=== PATIENT | female | born 2000 | race Caucasian/White ===

== ENCOUNTER 2020-11-16 08:56 | Emergency (ER) | payer OTHER ==
[2020-11-16 09:18] LABS: BASOPHILS % (AUTO) 0.1 %; EOSINOPHILS # (AUTO) 0.1 10^3/uL (0.0-0.7); EOSINOPHILS % (AUTO) 1.1 %; HCT - HEMATOCRIT 44.7 % (37.0-47.0); HGB - HEMOGLOBIN 15.9 g/dL (12.0-16.0); LYMPHOCYTES # (AUTO) 1.3 10^3/uL (1.5-3.5); LYMPHOCYTES % (AUTO) 17.6 %; MEAN CORPUSCULAR HGB CONC 35.6 g/dL (32.0-36.0); MEAN CORPUSCULAR VOLUME 95.5 fL (81.0-99.0); MEAN PLATELET VOLUME 8.9 fL (7.9-10.8); MONOCYTES # (AUTO) 0.6 10^3/uL (0.0-1.0); MONOCYTES % (AUTO) 8.1 %; NEUTROPHILS # (AUTO) 5.2 10^3/uL (1.5-6.6); PLT - PLATELET COUNT 219 10^3/uL (130-450); RED BLOOD COUNT 4.68 10^6/uL (4.20-5.40); RED CELL DISTRIBUTION WIDTH 11.6 % (12.0-15.0); WHITE BLOOD COUNT 7.1 x10^3/uL (4.8-10.8)
[2020-11-16] MEDS ORDERED: SODIUM CHLORIDE 0.9% 1,000 ML IV STA (09:21)
[2020-11-16 09:31] LABS: BILIRUBIN,URINE NEGATIVE (NEGATIVE); GLUCOSE, URINE (UA) NEGATIVE (NEGATIVE); KETONES,URINE (UA) NEGATIVE (NEGATIVE); LEUKOCYTE ESTERASE, URINE NEGATIVE (NEGATIVE); NITRITE,URINE NEGATIVE (NEGATIVE); OCCULT BLOOD,URINE NEGATIVE (NEGATIVE); PROTEIN,URINE NEGATIVE (NEGATIVE); UROBILINOGEN,URINE 0.2 (NORMAL) E.U./dL (NORMAL)
[2020-11-16 09:32] LABS: ALBUMIN 4.4 g/dL (3.2-5.5); ALBUMIN/GLOBULIN RATIO 1.4 (1.0-2.2); BILIRUBIN,TOTAL 0.8 mg/dL (0.2-1.0); CALCIUM 9.5 mg/dL (8.5-10.3); POTASSIUM 3.5 mmol/L (3.5-5.0); TOTAL PROTEIN 7.5 g/dL (6.7-8.2)
[2020-11-16 09:34] LABS: CLARITY,URINE CLEAR (CLEAR); HCG UR QUAL NEGATIVE
--- NOTE | 2020-11-16 09:50 | ED Physician Documentation ---
PD HPI NVD - Stated complaint Stated Complaint: ABD PX - Chief complaint Chief Complaint: Abd Pain - History obtained from History obtained from: Patient - History of Present Illness Timing - onset: How many days ago (5) Timing - duration: Days (5) Timing - details: Gradual onset, Still present Associated symptoms: Abdominal pain Contributing factors: No: Sick contact, Bad food, Travel, Recent antibiotics, Alcohol use, Anticoagulated, Diabetes Improved by: Laying still, BM Worsened by: Eating Similar symptoms before: Has not had sx before Recently seen: Not recently seen - Additonal information Additional information: 20-year-old female has developed acute diarrhea which has been excessive at 6 times per day and she has developed some abdominal cramping associated with this. She started this about 5 days ago and has had no improvement. She is drinking as much fluid as she can get down and she is nauseated but has not had issue with vomiting. She has not noted any blood in her stool. She has not been on antibiotic within the last 2 months and any eggs that she eats are processed through a restaurant. Review of Systems Constitutional: reports: Chills. denies: Fever Eyes: denies: Decreased vision Ears: denies: Ear pain Nose: denies: Congestion Throat: denies: Sore throat Cardiac: denies: Chest pain / pressure, Palpitations Respiratory: denies: Dyspnea, Cough GI: reports: Abdominal Pain, Nausea, Diarrhea. denies: Vomiting : denies: Dysuria, Frequency Skin: denies: Rash Musculoskeletal: denies: Neck pain, Back pain, Extremity pain PD PAST MEDICAL HISTORY - Present Medications Home Medications: Ambulatory Orders Medication Instructions Recorded Confirmed Levothyroxine [Synthroid] 25 mcg PO DAILY 11/16/20 11/16/20 Sulfamethox/Trimeth 800/160 1 each PO BID #10 tablet 11/16/20 [Bactrim Ds] - Allergies Allergies/Adverse Reactions: Allergies Allergy/AdvReac Type Severity Reaction Status Date / Time No Known Drug Allergies Allergy Verified 11/16/20 09:01 - Social History Does the pt smoke?: No Smoking Status: Never smoker - POLST Patient has POLST: No PD ED PE NORMAL - Vitals Vital signs reviewed: Yes - General General: Alert and oriented X 3, No acute distress, Well developed/nourished - HEENT HEENT: Atraumatic, PERRL, EOMI - Neck Neck: Supple, no meningeal sign, No bony TTP - Cardiac Cardiac: RRR, No murmur - Respiratory Respiratory: No respiratory distress, Clear bilaterally - Abdomen Abdomen: Normal bowel sounds, Soft, Non distended, No organomegaly, Other (mild general tenderness without garding ) - Back Back: No CVA TTP, No spinal TTP - Derm Derm: Normal color, Warm and dry, No rash - Extremities Extremities: No deformity, No edema - Neuro Neuro: Alert and oriented X 3, 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, No motor deficit, No sensory deficit, Normal speech Eye Opening: Spontaneous Motor: Obeys Commands Verbal: Oriented GCS Score: 15 - Psych Psych: Normal mood, Normal affect Results - Vitals Vitals: Vital Signs - 24 hr 11/16/20 11/16/20 11/16/20 09:02 11:04 13:08 Temperature 36.7 C 36.1 C L Heart Rate 87 66 82 Respiratory 18 19 18 Rate Blood Pressure 128/79 104/65 107/76 O2 Saturation 98 100 100 Oxygen O2 Source Room air - Labs Labs: Laboratory Tests 11/16/20 11/16/20 11/16/20 09:10 09:12 09:12 WBC 7.1 RBC 4.68 Hgb 15.9 Hct 44.7 MCV 95.5 MCH 34.0 H MCHC 35.6 RDW 11.6 L Plt Count 219 MPV 8.9 Neut # (Auto) 5.2 Lymph # (Auto) 1.3 L [place] # (Auto) 0.6 Eos # (Auto) 0.1 Baso # (Auto) 0.0 Absolute Nucleated RBC 0.00 Nucleated RBC % 0.0 Sodium 139 Potassium 3.5 Chloride 104 Carbon Dioxide 25 Anion Gap 10.0 BUN 9 Creatinine 1.0 Estimated GFR (MDRD) 71 L Glucose 101 H Calcium 9.5 Total Bilirubin 0.8 AST 18 ALT 16 Alkaline Phosphatase 65 Total Protein 7.5 Albumin 4.4 Globulin 3.1 Albumin/Globulin Ratio 1.4 Lipase 23 Urine Color LT. YELLOW Urine Clarity CLEAR Urine pH 7.0 Ur Specific [place] <=1.005 Urine Protein NEGATIVE Urine Glucose (UA) NEGATIVE Urine Ketones NEGATIVE Urine Occult Blood NEGATIVE Urine Nitrite NEGATIVE Urine Bilirubin NEGATIVE Urine Urobilinogen 0.2 (NORMAL) Ur Leukocyte Esterase NEGATIVE Ur Microscopic Review NOT INDICATED Urine Culture Comments NOT INDICATED Urine HCG, Qual NEGATIVE - Rads (name of study) ab/pel w Radiology: Prelim report reviewed (Impression: 1. Visualized portions of the appendix are within normal limits.2. Thickened versus suboptimal distention of the right colon, which could indicate infection or inflammation. 3. Mildly prominent mesenteric lymph nodes, suggestive of mesenteric adenitis.), EMP read indepedently, See rad report Procedures - IVC sono (time) 0915 Bedside IVC sono: IVC measures (cm) (1.72), Euvolemia PD MEDICAL DECISION MAKING - ED course Complexity details: reviewed results, re-evaluated patient, considered saba bhatia, d/w patient ED course: 20-year-old female who has had 5 days of diarrhea has abdominal cramping as well and she has come to the emergency department today with persistence of these symptoms over the past 5 days that seem to be getting worse.She comes into the emergency department with a gallon jug of water that looks like she has been drinking that and we tested her inferior vena cava she is not significantly dehydrated. We did check her electrolytes and these have held up well. The were able to obtain a stool specimen, we have no results for that today. The patient had significant enough pain that she requested CT scan be done of the abdomen and pelvis. This demonstrated an area of the colon that is concerning for infection. I discussed with the patient the 5-day arcelia on diarrhea and the indication for attempting empiric therapy. We will try empiric therapy with Septra Stool culture is pending. I have asked the patient to use some Imodium as well. Departure - Departure Disposition: 01 Home, Self Care Clinical Impression: Gastroenteritis Diarrhea Qualifiers: Diarrhea type: presumed infectious Qualified Code(s): R19.7 - Diarrhea, unspecified Condition: Stable Instructions: ED Gastroenteritis Bacterial Follow-Up: PATRICIA WADDELL MD [Primary Care Provider] - Prescriptions: Sulfamethox/Trimeth 800/160 [Bactrim Ds] 1 each PO BID #10 tablet Comments: Today you have had diarrhea now for 5 days and we are going to use empiric antibiotic therapy. We are unsure of the organism that is being treated and we are using a broad-spectrum antibiotic. A culture of your stool is pending. We recommend you use some Imodium to reduce the amount of diarrhea that you are having. Today we found that you were not dehydrated and your electrolytes are good.
[2020-11-16] MEDS ORDERED: IOVERSOL 320 100 ML VIAL IVP ONE ×2 (10:48→10:49)
--- NOTE | 2020-11-16 11:08 | CT Report ---
PROCEDURE: Abdomen/Pelvis W INDICATIONS: diffuse abd pain CONTRAST: IV CONTRAST: Optiray 320 ml: 100 PO CONTRAST: *NO PO CONTRAST TECHNIQUE: After the administration of IV contrast, 5 mm thick sections acquired from the diaphragms to the symp hysis. 5 mm thick coronal and sagittal reformats were acquired. For radiation dose reduction, the f ollowing was used: automated exposure control, adjustment of mA and/or kV according to patient size. COMPARISON: None. FINDINGS: Image quality: Excellent. ABDOMEN: Lung bases: Lung bases are clear. Heart size is normal. Solid organs: Liver and spleen are normal in size and enhancement. Gallbladder is grossly unremarka ble Biliary system is non dilated. Pancreas enhances normally. No adrenal nodules. Kidneys demons trate normal size and enhancement, without hydronephrosis. Peritoneum and bowel: Bowel loops are suboptimally evaluated secondary to lack of oral contrast. Sto mach and small bowel are grossly unremarkable. There is moderate thickening versus suboptimal distent ion of the right colon. Portion of the appendix is visualized within the right anterior pelvis series 3 image 9), and is within normal limits. Small amount of free fluid within the pelvis, within physio logical limits in a menstruating female. Nodes and vessels: No retroperitoneal or mesenteric adenopathy by size criteria. Multiple mildly pr ominent subcentimeter mesenteric lymph nodes are present. Aorta and inferior vena cava are normal in size. Miscellaneous: No ventral hernias. PELVIS: Genitourinary: Bladder wall thickness is normal. Intrauterine device is present. Miscellaneous: No inguinal hernias or adenopathy. Bones: No suspicious bony lesions. No vertebral body compression fractures. IMPRESSION: 1. Visualized portions of the appendix are within normal limits. 2. Thickening versus suboptimal distention of the right colon, which could indicate infection or infl ammation. 3. Mildly prominent mesenteric lymph nodes, suggestive of mesenteric adenitis. Reviewed by: Gee White MD on 11/16/2020 11:06 AM PDT Approved by: Gee White MD on 11/16/2020 11:06 AM PDT Station ID: [id number]
[2020-11-16 13:09] VITALS: BP 107/76
== END 2020-11-16 13:34 | disposition home or self-care (01) ==
LOC: ED 08:56
DX: K52.9 Noninfective gastroenteritis and colitis, unspecified (principal)
CPT/HCPCS: 36415; 74177; 80053; 81003; 81025; 81599; 83690; 85025; 99284; Q9967; 81001; 87045; 87046; 87086

== ENCOUNTER 2023-11-09 15:39 | Outpatient (CLI) | payer OTHER ==
--- NOTE | 2023-11-10 09:34 | MRI Report ---
PROCEDURE: Knee LT WO INDICATIONS: L KNEE PAIN TECHNIQUE: Noncontrast sagittal PD fast spin echo and T2 fast spin echo with fat saturation, sagittal 3-D gradie nt sequence with fat saturation; coronal T1 spin echo and PD fast spin echo with fat saturation, and axial PD fast spin echo with fat saturation through the knee. COMPARISON: None. FINDINGS: Image quality: Excellent. Menisci: The medial and lateral menisci demonstrate normal morphology and internal signal. The meni scal root ligaments appear intact. Cruciate ligaments: The anterior and posterior cruciate ligaments appear intact. Medial structures: The medial collateral ligament appears intact. The semimembranosus tendon insert ions and and meniscocapsular junction appear intact. Visualized portions of the pes anserinus tendon s appear normal. No abnormal bursal fluid. Lateral structures: The lateral collateral ligament, long and short heads of the biceps femoris tend on appear intact. The popliteus tendon appears normal. Iliotibial band appears normal. Anterior structures: The quadriceps and patellar tendons appear intact. Patellar alignment is familia l. No femoral trochlear dysplasia or ventral trochlear prominence. There is edema in the superolater al aspect of the infrapatellar fat pad. Bones and cartilage: No bone marrow contusions or fractures. The cartilage of the medial and latera l femorotibial compartments, as well as the patellofemoral compartment, appears normal in thickness. Joint space: There is small knee joint fluid. There is a tiny Arias's cyst. Normal appearing synovi al plicae are incidentally noted. IMPRESSION: 1.There is edema in the superolateral aspect of the infrapatellar fat pad suggesting patellar tendon lateral femoral condyle friction syndrome. Recommend correlation with anterior knee pain. 2. Small knee joint effusion. Reviewed by: Pastor Sanders MD on 11/10/2023 9:33 AM PDT Approved by: Pastor Sanders MD on 11/10/2023 9:33 AM PDT Station ID: [id number]
== END 2023-11-09 15:40 | disposition home or self-care (01) ==
LOC: DI 15:39
PROVIDERS: ATTEND Preventive Medicine Aerospace Medicine
DX: M25.462 Effusion, left knee (principal); M25.562 Pain in left knee